=== PATIENT | male | born 1990 | race Caucasian/White ===

== ENCOUNTER 2016-07-19 02:29 | Emergency (ER) | payer MEDICAID ==
--- NOTE | 2016-07-19 03:01 | ED Physician Chart ---
Chief Complaint/HPI - Patient Information Date Seen:: 07/19/16 Time Seen:: 02:50 Chief Complaint:: chest pain History of Present Illness:: awoke 20-30 minutes ago with 3/10 substernal chest pain. Pain does not radiate. No diaphoresis or SOB. Allergies:: Allergies Allergy/AdvReac Type Severity Reaction Status Date / Time No Known Allergies Allergy Verified 11/23/15 23:03 Vitals:: Vital Signs - 8 hr 07/19/16 02:30 Temp 97.6 F HR 50 RR 18 BP 103/64 O2 Sat % 100 Historian:: Patient Review:: Nurse's Note Reviewed Review of Systems - Review of Systems General/Constitutional: No fever, No chills Skin: No skin lesions Head: No headache Eyes: No loss of vision ENT: No earache Neck: No neck pain Cardio Vascular: Chest pain Pulmonary: No SOB GI: No nausea, No vomiting G/U: No dysuria, No hematuria Musculoskeletal: No bone or joint pain Endocrine: No polyuria Psychiatric: No prior psych history, No depression Hematopoietic: No bruising Allergic/Immuno: No urticaria Neurological: No syncope, No focal symptoms Past Medical History - Past Medical History Past Medical History: Other (bradycardia) Family History: HTN, Other (arrhythmia; asthma) Social History: Non Smoker, Alcohol, Other (occasional alcohol) Surgical History: None Psychiatricy History: None Family Medical History - Family Member Mother History Unknown: Yes Physical Exam - Physical Examination General/Constitutional: Well-developed, well-nourished, Alert, No distress Head: Atraumatic Eyes: Lids, conjuctiva normal, PERRL Skin: Nl inspection, No rash, No skin lesions, No ecchymosis, Well hydrated, No lymphadenopathy ENMT: External ears, nose nl, TM canals nl, Nasal exam nl, Lips, teeth, gums nl , Oropharynx nl, Tonsils nl Neck: No nuchal rigidity Respiratory: Nl effort/Exclusion, Clear to Auscultation, No Wheeze/Rhonchi/Rales Cardio Vascular: RRR GI: No tenderness/rebounding/guarding, No organomegaly, No hernia, Normal BS's, Nondistended, No mass/bruits : No CVA tenderness Extremities: Normal digits & nails Neuro/Psych: No focal deficits Misc: No paraspinal tenderness Assessment - Assessment General Assessment: still having 3/10 substernal chest pain. ED Septic Shock - . Is Septic Shock (SBP<90, OR Lactate>4 mmol\L) present?: No - <6hrs of presentation: Vital Signs: Vital Signs - 8 hr 07/19/16 02:30 Temp 97.6 F HR 50 RR 18 BP 103/64 O2 Sat % 100 Reassessment (Disposition) - Reassessment Reassessment Condition:: Unchanged - Diagnosis Diagnosis:: [id number] chest pain - Aftercare/Follow up Instructions Aftercare/Follow-Up Instructions:: Refer to Discharge Instructions - Patient Disposition Discharge/Transfer:: Home Condition at Disposition:: Stable, Unchanged
== END 2016-07-19 04:15 | disposition home or self-care (01) ==
LOC: ER 02:29
DX: R07.89 Other chest pain (principal)
CPT/HCPCS: 36415-UA; 84484-TC; 93005